=== PATIENT | female | born 1985 | race African-American/Black ===

== ENCOUNTER → 2024-10-05 | Day surgery (SDC) | payer MEDICAID, SELFPAY | END | disposition home or self-care (01) | LOC: S2EX 10-10 06:28 | PROVIDERS: Referring Provider Surgery; Visit Provider Surgery | PROC: 0FT44ZZ Resection of Gallbladder, Percutaneous Endoscopic Approach (ICD-10-PCS; CPT 47562; principal; 2024-10-05 12:30) | DX: K80.20 Calculus of gallbladder without cholecystitis without obstruction (principal); Z53.9 Procedure and treatment not carried out, unspecified reason | CPT/HCPCS: 80048; 81025; 85025; 85610; 85730 ==

== ENCOUNTER 2025-06-25 12:57 | Emergency (ER) | payer MEDICAID, SELFPAY ==
[2025-06-25 12:58] VITALS: PULSE 68; O2SAT 98; BMI 46.3
--- NOTE | 2025-06-25 13:01 | EKG_ITS ---
[facility] (Formerly [facility]) Test Date: 2025-06-25 Pat Name: JV Cifuentespartment: Room: - Gender: Female Long Term Acute Care Registered Nurse: : 1985 Requested By: ED Temporary Provider Order Number: [id number] Reading MD: ED Temporary Provider Measurements Intervals [place] Rate: 70 P: 23 IA: 158 QRS: 6 QRSD: 87 T: 24 QT: 397 QTc: 429 Interpretive Statements SINUS RHYTHM WITH SINUS ARRHYTHMIA LOW QRS VOLTAGE IN PRECORDIAL LEADS [QRS DEFLECTION < 1.0 mV IN CHEST LEADS] SEPTAL MYOCARDIAL INFARCTION , PROBABLY OLD [40+ ms Q WAVE IN V1/V2] Compared to ECG 09/25/2024 10:16:54 Low QRS voltage now present Myocardial infarct finding now present /store/[id number]
[2025-06-25 13:12] VITALS: BP 143/94; PULSE 70; RESP 20; TEMP 36.9; O2SAT 98
--- NOTE | 2025-06-25 13:26 | XR_ITS ---
Examination: AP lateral chest 2 views TECHNIQUE: Sitting AP lateral chest 2 views Date and time: June 25, 2025 1335 hours INDICATIONS: Shortness of breath chest pain beginning 3 days ago. FINDINGS: Normal heart size. No pneumonia or pulmonary edema Mild osteopenia IMPRESSION: No pneumonia or pulmonary edema
--- NOTE | 2025-06-25 13:26 | PD.EDRME ---
Rapid Medical Screening Exam RME Arrival date/time: 06/25/25 12:57 39-year-old female with no known medical history presents to the emergency room with a chief complaint of chest pain, palpitations, abdominal pain, vomiting x 1 day I have greeted and performed a focused initial assessment of this patient. A comprehensive ED assessment and evaluation of the patient, analysis of all test results, and completion of the medical decision making process will be conducted by additional ED providers. Chief Complaint: Chest Pain Vital signs: Vital Signs Temperature 98.5 F 06/25/25 13:12 Pulse Rate 70 06/25/25 13:12 Respiratory Rate 20 06/25/25 13:12 Blood Pressure 143/94 H 06/25/25 13:12 Pulse Oximetry (%) 98 06/25/25 13:12 Oxygen Delivery Method Room Air 06/25/25 13:12 Vital signs reviewed by provider: Yes
[2025-06-25] MEDS: ONDANSETRON ODT 4 MG TABRAP PO (13:45)
[2025-06-25 15:21] LABS: Basophils # (Auto) 0.1 Thou/mm3 (0.0-0.2); Basophils % (Auto) 1 % (0-2.5); Eosinophils # (Auto) 0.1 Thou/mm3 (0.0-0.5); Eosinophils % (Auto) 1 % (0-10); Hematocrit 39.6 % (36.0-46.0); Hemoglobin 12.7 g/dL (12.0-16.0); Immature Granulocytes Auto 0.07 Thou/mm3 (0.00-0.00); Lymphocytes # (Auto) 2.4 Thou/mm3 (1.0-4.8); Lymphocytes % (Auto) 17 % (10-50); Mean Corpuscular HGB Conc 32.1 g/dl (31.0-37.0); Mean Corpuscular Hemoglobin 27.1 pg (25.0-35.0); Mean Corpuscular Volume 85 fL (80-100); Monocytes # (Auto) 0.7 Thou/mm3 (0.0-0.8); Monocytes % (Auto) 5 % (0-12); Neutrophils # (Auto) 10.4 Thou/mm3 (1.8-7.7); Neutrophils % (Auto) 76 % (37-80); Nucleated Red Blood Cell # 0.00 Thou/mm3 (0.00-0.00); Nucleated Red Blood Cell % 0 /100 WBC (0); Platelet Count 284 Thou/mm3 (140-440); RDW Standard Deviation 44.5 fL (36.4-46.3); Red Blood Count 4.68 Miln/mm3 (4.00-5.20); White Blood Count 13.7 Thou/mm3 (3.6-11.0)
[2025-06-25 15:36] LABS: INR 1.0 (0.9-1.3); Partial Thromboplastin Time 24.0 Seconds (22.0-36.0); Prothrombin Time 10.9 Seconds (9.0-12.2)
[2025-06-25 15:42] LABS: Alanine Aminotransferase 11 U/L (10-49); Albumin, Serum 4.1 gm/dL (3.5-5.0); Albumin/Globulin Ratio 1.4 (1.2-2.2); Alkaline Phosphatase 82 U/L (46-116); Anion Gap 11 (7-16); Aspartate Amino Transferase 18 U/L (0-34); BUN/Creatinine Ratio 6 Ratio (12-20); Bilirubin,Total 0.4 mg/dL (0.3-1.2); Blood Urea Nitrogen < 5 mg/dL (9-23); Calcium 9.4 mg/dL (8.3-10.6); Calcium (Corrected) 9.4 mg/dL (8.5-10.1); Carbon Dioxide 21.4 mMol/L (20.0-31.0); Chloride 109 mMol/L (98-107); Creatinine (Component) 0.8 mg/dL (0.6-1.3); Estimated Creatinine Clearance 123.1 mL/min (>60); Globulin 3.0 gm/dL (2.3-3.5); Glucose 93 mg/dL (74-106); LDH (Lactate Dehydrogenase) 267 U/L (120-246); Lipase 24 U/L (12-53); Magnesium 1.6 mg/dL (1.6-2.6); Osmolality,Calculated 278 (275-295); Potassium 3.5 mMol/L (3.4-5.1); Sodium 141 mMol/L (136-145); Total Protein 7.1 gm/dL (5.7-8.2); Troponin I < 0.002 ng/mL (0.0-0.045); eGFR > 60 See Note
[2025-06-25 15:46] LABS: B-Type Natriuretic Peptide 44 pg/mL (0-100)
--- NOTE | 2025-06-25 17:20 | PC.NURSE ---
NO ANSWER IN LOBBY
--- NOTE | 2025-06-25 17:44 | PC.NURSE ---
NO ANSWER IN LOBBY X 2
--- NOTE | 2025-06-25 18:48 | PC.NURSE ---
CALLED PATIENT IN THE LOBBY AND OUTSIDE, NO ANSWER RECEIVED.
== END 2025-06-25 18:48 | disposition left against medical advice (07) ==
LOC: SERX 13:50
PROVIDERS: Emergency Provider Nurse Practitioner Family; PCP Family Medicine
DX: R07.9 Chest pain, unspecified (principal); R00.2 Palpitations; R10.9 Unspecified abdominal pain; R11.10 Vomiting, unspecified; I49.8 Other specified cardiac arrhythmias; R06.02 Shortness of breath; Z53.29 Procedure and treatment not carried out because of patient's decision for other reasons
CPT/HCPCS: 36415; 71046; 80053; 80307; 81001; 83615; 83690; 83735; 83880; 84484; 85025; 85610; 85730; 93005; 99283; Q0162

== ENCOUNTER 2025-06-26 04:56 | Emergency (ER) | payer MEDICAID, SELFPAY ==
--- NOTE | 2025-06-26 05:07 | PD.EDRME ---
Rapid Medical Screening Exam RME Arrival date/time: 06/26/25 04:56 Chief Complaint: Abdominal Pain Time Seen by Provider: 06/26/25 05:05 Vital signs reviewed by provider: Yes RME Narrative: 39 y/o female with Hx of Methamphetamine use and recent STI presents to ED BIBA from home c/o 9 out of 10 epigastric abdominal pain that radiates to the chest, nausea, and vomiting x several days. Patient is currently on an antibiotic for management of STI that she states she got from her . Patient admits last Methamphetamine use was approximately 2 days ago.
[2025-06-26 05:17] VITALS: BMI 25.0
[2025-06-26 05:19] VITALS: PULSE 83; RESP 18; O2SAT 98
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
== END 2025-06-26 06:10 | disposition home or self-care (01) ==
PROVIDERS: Emergency Provider Emergency Medicine
DX: R10.13 Epigastric pain (principal); R11.2 Nausea with vomiting, unspecified; Z53.29 Procedure and treatment not carried out because of patient's decision for other reasons
CPT/HCPCS: 80053; 81001; 83690; 84703; 99283

== ENCOUNTER 2025-07-07 22:28 | Emergency (ER) | payer MEDICAID, SELFPAY ==
[2025-07-07 22:29] VITALS: BMI 41.1
[2025-07-07 22:34] VITALS: BP 130/85; PULSE 121; RESP 19; TEMP 37.1; O2SAT 99
--- NOTE | 2025-07-07 22:47 | EKG_ITS ---
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
[2025-07-07 23:21] VITALS: PULSE 105
[2025-07-07 23:28] LABS: Basophils # (Auto) 0.1 Thou/mm3 (0.0-0.2); Basophils % (Auto) 1 % (0-2.5); Eosinophils # (Auto) 0.2 Thou/mm3 (0.0-0.5); Eosinophils % (Auto) 2 % (0-10); Hematocrit 39.0 % (36.0-46.0); Hemoglobin 12.5 g/dL (12.0-16.0); Immature Granulocytes Auto 0.04 Thou/mm3 (0.00-0.00); Lymphocytes # (Auto) 3.4 Thou/mm3 (1.0-4.8); Lymphocytes % (Auto) 32 % (10-50); Mean Corpuscular HGB Conc 32.1 g/dl (31.0-37.0); Mean Corpuscular Hemoglobin 27.7 pg (25.0-35.0); Mean Corpuscular Volume 86 fL (80-100); Monocytes # (Auto) 1.0 Thou/mm3 (0.0-0.8); Monocytes % (Auto) 9 % (0-12); Neutrophils # (Auto) 5.9 Thou/mm3 (1.8-7.7); Neutrophils % (Auto) 56 % (37-80); Nucleated Red Blood Cell # 0.00 Thou/mm3 (0.00-0.00); Nucleated Red Blood Cell % 0 /100 WBC (0); Platelet Count 310 Thou/mm3 (140-440); RDW Standard Deviation 46.9 fL (36.4-46.3); Red Blood Count 4.52 Miln/mm3 (4.00-5.20); White Blood Count 10.5 Thou/mm3 (3.6-11.0)
[2025-07-07 23:42] LABS: INR 1.0 (0.9-1.3); Partial Thromboplastin Time 21.6 Seconds (22.0-36.0); Prothrombin Time 11.1 Seconds (9.0-12.2)
[2025-07-07 23:48] LABS: B-Type Natriuretic Peptide < 20 pg/mL (0-100)
--- NOTE | 2025-07-08 | XR_ITS ---
Examination: Abdomen AP single view TECHNIQUE: AP supine abdomen single view Date and time: July 08, 2025 0013 hours INDICATIONS: Abdominal pain today no bowel movement 10 days. FINDINGS: Large amounts of stool throughout the colon No obstruction No free air Considerable patient motion IMPRESSION: Large amounts of stool throughout the entire colon
--- NOTE | 2025-07-08 00:03 | EDRME_ITS ---
Rapid Medical Screening Exam RME Arrival date/time: 07/07/25 22:28 Chief Complaint: Urogenital-Female Time Seen by Provider: 07/07/25 23:36 Vital signs: Vital Signs Temperature 98.7 F 07/07/25 22:34 Pulse Rate 121 H 07/07/25 22:34 Respiratory Rate 19 07/07/25 22:34 Blood Pressure 130/85 H 07/07/25 22:34 Pulse Oximetry (%) 99 07/07/25 22:34 Oxygen Delivery Method Room Air 07/07/25 22:34 Vital signs reviewed by provider: Yes RME Narrative: 39-year-old female presents to the ED with a complaint of I am septic . She states that she was taken to [facility] and diagnosed with sepsis secondary to a UTI and STI. She was taken to senior living and was being given Levaquin but when she was discharged from the senior living on Wednesday, she was not given any prescription for Levaquin. She is unable to tell me when she was actually at [place] or when she was discharged from [facility]. She is also unable to tell me when she entered senior living but her friend indicates she was discharged from senior living on Wednesday. She also states she has abdominal pain and has not had a bowel movement in 10 days. I have greeted and performed a focused initial assessment of this patient. A comprehensive ED assessment and evaluation of the patient, analysis of all test results, and completion of the medical decision making process will be conducted by additional ED providers.
[2025-07-08 00:08] LABS: Alanine Aminotransferase 16 U/L (10-49); Albumin, Serum 4.7 gm/dL (3.5-5.0); Albumin/Globulin Ratio 1.6 (1.2-2.2); Alkaline Phosphatase 75 U/L (46-116); Anion Gap 12 (7-16); Aspartate Amino Transferase 20 U/L (0-34); BUN/Creatinine Ratio 11 Ratio (12-20); Bilirubin,Total 0.3 mg/dL (0.3-1.2); Blood Urea Nitrogen 11 mg/dL (9-23); Calcium 10.3 mg/dL (8.3-10.6); Calcium (Corrected) 10.3 mg/dL (8.5-10.1); Carbon Dioxide 25.3 mMol/L (20.0-31.0); Chloride 108 mMol/L (98-107); Creatinine (Component) 1.0 mg/dL (0.6-1.3); Estimated Creatinine Clearance 92.0 mL/min (>60); Globulin 3.0 gm/dL (2.3-3.5); Glucose 106 mg/dL (74-106); Lipase 23 U/L (12-53); Magnesium 2.2 mg/dL (1.6-2.6); Osmolality,Calculated 288 (275-295); Potassium 4.2 mMol/L (3.4-5.1); Sodium 145 mMol/L (136-145); Total Protein 7.7 gm/dL (5.7-8.2); eGFR > 60 See Note
[2025-07-08 00:32] LABS: Collection Type, Urine Clean Catch
[2025-07-08 00:40] LABS: Bilirubin,Urine Negative (Negative); Blood,Urine 3+ (Negative); Calcium Oxalate Crystals,Urine 4+; Clarity,Urine Turbid (Clear/Hazy); Color,Urine Yellow (Lt Yel-Yel); Culture Indicated,Urine Contaminated; Glucose, Urine Negative (Negative); Ketones,Urine Negative (Negative); Leukocyte Esterase,Urine Positive (Negative); Nitrite,Urine Negative (Negative); PH,Urine 5.5 (5.0-7.0); Protein,Urine 1+ (Neg - Trace); RBC,Urine 292 /hpf (0-3); Specific Gravity,Urine 1.035 (1.001-1.035); Squamous Epithelial Cell,Urine 92 /hpf (0-5); Urobilinogen,Urine Negative mg/dL (0.0-1.0); WBC,Urine 184 /hpf (0-5)
[2025-07-08 00:46] LABS: Amphetamine/Methamp Scrn,U Positive (Negative); Barbiturate Screen,Urine Negative (Negative); Benzodiazepines Screen,Urine Negative (Negative); Benzoylecgonine Screen, Ur Negative (Negative); Fentanyl Screen,Urine Negative (Negative); Opiate Screen,Urine Negative (Negative); THC Screen,Urine Negative (Negative)
[2025-07-08 00:47] LABS: C-Reactive Protein < 0.5 mg/dL (0.0-0.9)
--- NOTE | 2025-07-08 00:54 | XR_ITS ---
Examination: CT abdomen and pelvis without contrast. Coronal 3-D reconstructions. Sagittal 2-D reconstructions. Date and time of exam:July 08, 2025, 0220 hours Comparison September 23, 2024 INDICATIONS: Hematuria, urinary tract infections, sepsis alert 10 days ago CTDI: vol (mGy): 12.81 DLP: (mGycm): 809 Technique: Axial images of the abdomen have been obtained, 3 mm slice thickness Intravenous contrast material has not been administered. Low dose protocols were performed. One or more of the following dose reduction techniques were used; automated exposure control, adjustment of the mA and/or KV according to patient size, use of iterative reconstruction technique. Findings: No focal liver or splenic lesions Absent gallbladder Hepatomegaly 20 cm Common hepatic duct 10 mm, no definite stones No renal or ureteral calculi, no hydronephrosis Aorta normal size 13 mm fat-containing umbilical hernia Normal appendix No bowel obstruction Anteverted uterus No adnexal mass Abundant stool in the rectosigmoid Urinary bladder intact osseous structures intact IMPRESSION: Hepatomegaly 20 cm Absent gallbladder Enlarged common hepatic duct 10 mm, consider hepatobiliary sonography follow-up No renal or ureteral calculi, no hydronephrosis No bladder mass or bladder calculi Mild bilateral renal parenchymal scar formation Normal appendix
[2025-07-08 01:47] LABS: HCG Qualitative,Urine Negative
[2025-07-08] MEDS: KETOROLAC INJ 60 MG/2 ML VIAL 30 MG IM (02:02)
[2025-07-08 02:06] VITALS: BP 126/62; PULSE 102; RESP 18; TEMP 36.7; O2SAT 98
[2025-07-08] MEDS: HYDROcodone/APAP 7.5/325 TABLET 1 TAB PO (02:32)
--- NOTE | 2025-07-08 03:25 | PRELIM_ITS ---
CT scan of the abdomen and pelvis without intravenous contrast (axial sections with sagittal and coronal reformats) July 08, 2025 0220 hours Clinical History: Hematuria No prior study is available for comparison. Findings: The lung bases are clear. The gallbladder is surgically absent. Mild thickening of the adrenals. The liver, pancreas, spleen, kidneys and are unremarkable on this noncontrast study. Fluid filled small bowel loops. No evidence of bowel obstruction. Moderate amount of fecal material is present in the colon. The appendix is within normal limits. The urinary bladder is unremarkable. There is no free fluid or free air.There is no adenopathy. The osseous structures are unremarkable. Impression: No evidence of renal/ureteric calculus or hydroureteronephrosis. Fluid filled small bowel loops, nonspecific versus enteritis. Report Electronically Signed By: Daljit Shepard 07/08/2025 3:24:59 AM [EST]
--- NOTE | 2025-07-08 03:42 | EDNOTE_ITS ---
ED Abdominal Pain RME/HPI General Chief Complaint: Urogenital-Female Stated complaint: I THINK I'M SEPTIC, UTI, NO BM 10 DAYS, ABD PAIN Time seen by provider: 07/07/25 23:36 Arrival date/time: 07/07/25 22:28 RME / HPI RME / HPI narrative: 39-year-old female presents to the ED with a complaint of I am septic . She states that she was taken to [facility] and diagnosed with sepsis secondary to a UTI and STI. She was taken to group home and was being given Levaquin but when she was discharged from the group home on Wednesday, she was not given any prescription for Levaquin. She is unable to tell me when she was actually at [place] or when she was discharged from [facility]. She is also unable to tell me when she entered group home but her friend indicates she was discharged from group home on Wednesday. She also states she has abdominal pain and has not had a bowel movement in 10 days. Related Data Home Medications ?Medication ?Instructions ?Recorded ?Confirmed fexofenadine 180 mg tablet 180 mg PO QDAY 10/24/24 (Allergy Relief (fexofenadine)) promethazine-DM 6.25 mg-15 mg/5 mL 5 ml PO [id number] PRN Cough 10/24/24 10/24/24 oral syrup Previous Rx's ?Medication ?Instructions ?Recorded ibuprofen 800 mg tablet 800 mg PO TID PRN pain #30 t abs 09/22/24 bisacodyl 5 mg tablet,delayed 5 mg PO QDAY 2 days #2 t abs 07/08/25 release (Dulcolax (bisacodyl)) cephalexin 500 mg capsule 500 mg PO BID #14 caps 07/08 polyethylene glycol 3350 17 4 g PO QDAY #119 grams 09/22 gram/dose oral powder (Miralax) Allergies Allergy/AdvReac Type Severity Reaction Status Date / Time morphine Allergy Severe ITCHING Verified 07/07/25 22:29 AND HIVES Review of Systems Review of Systems Systems Reviewed: All systems reviewed, normal except as documented Past Medical History Past Medical History NEUROLOGIC: Negative Neurological Disorders CARDIAC: Positive Cardiac Disorders, Myocardial Infarction and Hypercholesterolemia; Negative Congestive Heart Failure RESPIRATORY: Positive Asthma; Negative Chronic Obstructive Pulmonary Disease (COPD) GASTROINTESTINAL: Positive Gastrointestinal Disorders, Gall Bladder Disease and Gastroesophageal Reflux Disease; Negative Hepatitis GENITOURINARY: Positive Genitourinary Disorders and Kidney Stones; Negative Renal Disease REPRODUCTIVE: Positive Previous Pregnancies (x9) MUSCULOSKELETAL: Positive Musculoskeletal Disorders (cysts in bilateral wrists) ENDOCRINE: Negative Endocrine Disorders, Diabetes Mellitus Type 1 or Diabetes Mellitus Type 2 HEMATOLOGIC: Positive Anemia; Negative Sickle Cell Disease PSYCHO/SOCIAL: Positive Depression (in the past) and Anxiety OTHER HISTORY: Positive Chicken Pox; Negative Falls, Blood Transfusions, Blood Transfusion Reaction, Anesthesia Reactions or Cancer Surgical History SURGICAL: Positive Section; Negative Ear Surgery, Nephrectomy or Neurologic Surgery Social History SMOKING STATUS: Current some day smoker ED Exam Narrative Physical exam: Alert, afebrile and non-toxic appearing 39-year-old female with rapid, pressured speech. Lung sounds are clear, tachycardia at 121, regular rhythm. Abdomen is soft with moderate generalized tenderness. Non-distended. Positive bilateral CVA tenderness. Pain seems out of proportion to exam. Moves all extremities well. Course Course Course Narrative: Initial blood pressure 130/85, pulse 121, respirations 19 and nonlabored, temp 98.7, O2 sat 99% on room air. CBC reveals a normal white count of 10.5, normal H&H and normal platelets. Coags are essentially normal with a PTT minimally decreased at 21.6. CMP reveals normal electrolytes with the exception of a minimally elevated chloride of 108. Renal function is normal, liver function is normal, CRP is normal at less than 0.5, BNP is normal at less than 20. Lipase is normal at 23. Urinalysis reveals turbid yellow urine with a specific gravity of 1.035 with 3+ blood, negative nitrites, positive leukocyte esterase, 292 RBCs, 184 WBCs, 94 squamous epithelial cells, 4+ calcium oxalate crystals and no bacteria. Urine hCG is negative. Urine toxicology is positive for amphetamines/meth screen. Abdominal x-ray reveals no air fluid levels. There is a moderate amount of stool within the colon. CT of the abdomen and pelvis without contrast reveals no evidence of renal/ureteral calculus or hydroureteronephrosis. Fluid-filled small bowel loops, nonspecific versus enteritis. There is a moderate amount of fecal material in the colon. Patient was given Toradol 30 mg IM and Francitas 7.5 mg p.o. Quality Measures none Orders Category Date Time Status EKG (ED ONLY) *Do not use* NOW Care 07/07/25 22:[address] abdomen pelvis wo con Stat Exams 07/08/25 00:54 Taken EKG (ED Only) Stat Exams 07/07/25 22:47 Draft XR abdomen flat and uprght Stat Exams 07/08/25 00:00 Taken B-Type Natriuretic Peptide Stat Lab 07/07/25 23:11 Completed C-Reactive Protein Stat Lab 07/07/25 23:11 Completed CBC Stat Lab 07/07/25 23:11 Completed Comprehensive Metabolic Panel Stat Lab 07/07/25 23:11 Completed Drug Screen,Urine Stat Lab 07/07/25 00:11 Completed HCG Qualitative,Urine Stat Lab 07/08/25 01:01 Completed Lipase Stat Lab 07/07/25 23:11 Completed Magnesium Stat Lab 07/07/25 23:11 Completed Partial Thromboplastin Time Stat Lab 07/07/25 23:11 Completed Prothrombin Time with INR Stat Lab 07/07/25 23:11 Completed UA, C/S IF [Urinalysis, C/S if Indicated] Stat Lab 07/07/25 00:11 Completed HYDROcodone*/APAP 7.5/325 [Francitas 7.5/325] Med 07/08/25 02:20 Discontinued 1 tab PO X1 ONE Ketorolac Inj [Toradol Inj] Med 07/08/25 00:56 Discontinued 30 mg IM X1 ONE Vital Signs Vital signs: Vital Signs Temperature 98.7 F 07/07/25 22:34 Pulse Rate 121 H 07/07/25 22:34 Respiratory Rate 19 07/07/25 22:34 Blood Pressure 130/85 H 07/07/25 22:34 Pulse Oximetry (%) 99 07/07/25 22:34 Oxygen Delivery Method Room Air 07/07/25 22:34 Abdominal Pain MDM MDM Narrative MDM Narrative:: Symptoms, exam and diagnostic studies are consistent with: #1 UTI versus contaminated specimen. #2 constipation. Patient was discharged home in stable condition. Patient/family advised to follow-up with their PCP in 24-48 hours. Encouraged to return to the ED for any new or worsening symptoms. Patient data External records reviewed:: [facility] previous records Clinical information provided by:: patient Social determinants that could affect healthcare access:: substance use Patient has the following chronic illnesses:: Renal calculi, biliary colic, UTIs with sepsis, cholecystectomy, methamphetamine abuse How is presenting disease/condition affected by chronic disease/condition?: exacerbated by Evaluation data The following diagnostics were reviewed and interpreted by me:: lab results, radiology exam(s) and EKG tracing(s) Lab and/or radiology exams considered but not ordered:: N/A Interpretation Summary: As noted above Medications / Prescriptions Medications or Prescriptions considered but not ordered:: N/A Medication administrations:: Medication Administration History Discontinued Medications Hydrocodone Bitart/Acetaminophen (Hydrocodone/Apap 7.5/325 Tablet) 1 tab PO X1 ONE Stop: 07/08/25 02:21 Last Admin: 07/08/25 02:32 Dose: 1 tab Documented By: CVL Ketorolac Tromethamine (Ketorolac Inj 60 Mg/2 Ml Vial) 30 mg IM X1 ONE Stop: 07/08/25 00:57 Last Admin: 07/08/25 02:02 Dose: 30 mg Documented By: CB As noted above Consultations Consultation(s) initiated? (list below): No Diagnosis Differential diagnosis abdominal pain: abdominal pain, constipation, gastroenteritis, pancreatitis, small bowel obstruction and other (UTI, pyelonephritis) Most likely diagnosis given after review of the tests above:: UTI versus contaminated specimen, constipation with moderate amount of stool. Admission Indicated Admission indicated?: not indicated Explain why admission is indicated or not indicated:: Patient is stable for discharge Admission Request Was there a request for admission?: No Disposition Plan Disposition Plan: Discharge Discharge Attestation Discharge Attestation: The patient and all family members were given an opportunity to ask questions and understood the discharge instructions. Discharge instructions specifically effects, indications for sooner follow up or return to the emergency department, and the expected course of current diagnosis. Patient condition: Stable Discharge Plan Plan Patient Disposition: HOME (Self Care) Discharge Disposition comment: Stable Prescriptions/Referrals Prescriptions/Med Rec: New cephalexin 500 mg capsule 500 mg PO BID Qty: 14 0RF bisacodyl [Dulcolax (bisacodyl)] 5 mg tablet,delayed release (DR/EC) 5 mg PO QDAY 2 Days Qty: 2 0RF polyethylene glycol 3350 [Miralax] 17 gram/dose powder 4 g PO QDAY Qty: 119 0RF No Action ibuprofen 800 mg tablet 800 mg PO TID PRN (Reason: pain) Qty: 30 0RF promethazine-DM 6.25-15 mg/5 mL syrup 5 ml PO [id number] PRN (Reason: Cough) fexofenadine [Allergy Relief (fexofenadine)] 180 mg tablet 180 mg PO QDAY Referrals: No Primary/Family,Physician [Primary Care Provider] - In 1 week Problem List Clinical Impression: UTI (urinary tract infection), Constipation Patient/Caregiver Discharge Instructions Education Materials: Urinary Tract Infections in Women, ED Constipation (Adult) Additional Instructions: Take the antibiotics as prescribed and complete the course even though you may be feeling better. Use the Dulcolax to help with a bowel movement, and use the MiraLAX to keep your bowels running smoothly. Follow-up with your primary care physician in 24 to 48 hours. Return to the ED for any new or worsening symptoms. Print Language: Estonian Stand Alone Forms: Alpa Award Info., Patient Portal Info Letter PA/SPECIAL EDUCATION MATH TEACHER Supervising Physician YOANNA/JESUS Supervising Physician: Dr. Wagner
[2025-07-08 04:14] VITALS: RESP 18
== END 2025-07-08 04:15 | disposition home or self-care (01) ==
PROVIDERS: Physician Assistant; Emergency Provider Emergency Medicine
DX: N39.0 Urinary tract infection, site not specified (principal); K59.00 Constipation, unspecified; F15.10 Other stimulant abuse, uncomplicated; F17.210 Nicotine dependence, cigarettes, uncomplicated; Z90.49 Acquired absence of other specified parts of digestive tract; Z88.5 Allergy status to narcotic agent
CPT/HCPCS: 36415; 74019; 74176; 80053; 80307; 81001; 81025; 83690; 83735; 83880; 85025; 85610; 85730; 86140; 93005; 96372; 99284; J1885; A9270

== ENCOUNTER 2025-07-16 17:05 | Emergency (ER) | payer MEDICAID, SELFPAY ==
[2025-07-16 17:07] VITALS: BMI 41.1
[2025-07-16 17:12] VITALS: BP 140/88; PULSE 84; RESP 18; TEMP 36.6; O2SAT 100
--- NOTE | 2025-07-16 17:27 | PD.EDRME ---
Rapid Medical Screening Exam RME Arrival date/time: 07/16/25 17:05 39-year-old female with no known medical history presents to the emergency room with a chief complaint of 10 out of 10 abdominal pain nausea and vomiting x 2 days I have greeted and performed a focused initial assessment of this patient. A comprehensive ED assessment and evaluation of the patient, analysis of all test results, and completion of the medical decision making process will be conducted by additional ED providers. Chief Complaint: Abdominal Pain Vital signs: Vital Signs Temperature 97.9 F 07/16/25 17:12 Pulse Rate 84 07/16/25 17:12 Respiratory Rate 18 07/16/25 17:12 Blood Pressure 140/88 H 07/16/25 17:12 Pulse Oximetry (%) 100 07/16/25 17:12 Oxygen Delivery Method Room Air 07/16/25 17:12 Vital signs reviewed by provider: Yes
--- NOTE | 2025-07-16 18:50 | PC.NURSE ---
NET DEVELOPER SOFTWARE ENGINEER C TOLD ME PT REFUSED TO HAVE LABS DRAWN.
--- NOTE | 2025-07-16 19:36 | PC.NURSE ---
pts name called out at 7:25 3 times. pts name called out again in lobby 2 times at 7:36
--- NOTE | 2025-07-16 20:29 | PC.NURSE ---
CALLED PT IN LOBBY AND OUTSIDE AND NO ANSWER
--- NOTE | 2025-07-16 20:54 | PD.EDADDENDU ---
Emergency Room Addendum Addendum Narrative: When I looked for the patient to start my evaluation, I was told the patient eloped. Jordan Benavides MD
== END 2025-07-16 20:53 | disposition left against medical advice (07) ==
PROVIDERS: Emergency Provider Emergency Medicine; PCP Family Medicine
DX: R10.9 Unspecified abdominal pain (principal); R11.2 Nausea with vomiting, unspecified; Z53.29 Procedure and treatment not carried out because of patient's decision for other reasons
CPT/HCPCS: 80053; 80307; 81001; 81025; 83690; 85025; 87086; 99283

== ENCOUNTER 2025-08-22 14:35 | Emergency (ER) | payer MEDICAID, SELFPAY ==
[2025-08-22 14:45] VITALS: BP 138/79; PULSE 83; RESP 17; TEMP 36.6; O2SAT 100; BMI 36.8
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
--- NOTE | 2025-08-22 15:30 | PC.NURSE ---
ATTEMPTED TO COMPLETE TRIAGE. [employer] OFFICER STATED THAT THEY NEEDED TO INTERVIEW PT FIRST.
== END 2025-08-22 16:18 ==
PROVIDERS: Emergency Provider Emergency Medicine
DX: Z02.89 Encounter for other administrative examinations (principal); T74.21XA Adult sexual abuse, confirmed, initial encounter; N89.8 Other specified noninflammatory disorders of vagina
CPT/HCPCS: 80053; 81001; 83880; 84703; 85025; 86703; 86780; 87491; 87591; 87661; 99281